=== PATIENT | female | born 1935 | race Caucasian/White ===

== ENCOUNTER → 2016-04-04 | Outpatient (CLI) | payer MEDICARE ==
[2015-08-19 15:00] VITALS: BP 132/72
[~2016-04-04] MED LIST: ASPI325T4 PO; CEFP200T PO; CIPR500T94 PO; CITA40TA5 PO; FLUC100T7 PO; INSU100I11 SQ; INSU100I27 SQ; INSU100V13 SQ; LOSA25TA4 PO; METO100T11 PO; METR500T PO; MUPI15CR TP; PRAV80TA2 PO; [UNRECOGNIZED DRUG - CODE] TP
== END | disposition home or self-care (01) ==
LOC: SPEC 15:43
PROVIDERS: ATTEND Podiatrist Foot & Ankle Surgery
DX: L97.322 Non-pressure chronic ulcer of left ankle with fat layer exposed (principal)
CPT/HCPCS: 87071; 87075; 87205